=== PATIENT | male | born 1955 | race African-American/Black ===

== ENCOUNTER 2021-11-30 10:49 | Emergency (ER) | payer BC, MEDICARE, OTHER ==
[~2021-11-30] VITALS: Ht 180.3 cm; Wt 102.1 kg
[~2021-11-30 10:49] MED LIST: ACE3T PO; METF-370 PO; SIMV-8 PO
[2021-11-30 11:00] VITALS: BP 158/49
[2021-11-30] MEDS ORDERED: IBUP800T27 PO (12:09)
== END 2021-11-30 12:12 | disposition home or self-care (01) ==
LOC: ER 10:49
DX: S93.401A Sprain of unspecified ligament of right ankle, initial encounter (principal); E11.9 Type 2 diabetes mellitus without complications; E78.5 Hyperlipidemia, unspecified; I10 Essential (primary) hypertension; Z88.6 Allergy status to analgesic agent; X58.XXXA Exposure to other specified factors, initial encounter; Y93.01 Activity, walking, marching and hiking; Y92.89 Other specified places as the place of occurrence of the external cause; Y99.8 Other external cause status
CPT/HCPCS: 73610